=== PATIENT | female | born 1975 | race Caucasian/White ===

== ENCOUNTER → 2017-01-05 | Day surgery (SDC) | payer OTHER ==
[2016-12-29 11:56] VITALS: BMI 22.0
[~2017-01-05] VITALS: Ht 170.2 cm; Wt 63.6 kg
[~2017-01-05] MED LIST: FOLI1TAB7 PO; LIDOCAINE HCL 2% 2 ML VIAL (20MG/ML) ONE; MAGN400T6 PO; MISCCAP80 PO; NICO14DI31 TD; PANT40TA PO; POLY150C4 PO; PROPOFOL IV EMULSION 10 MG/ML 20 ML VIAL IV ONE; RMCI IV
[2017-01-05 12:41] VITALS: Ht 170.2 cm; Wt 63.6 kg
--- NOTE | 2017-01-05 12:53 | Endo History and Physical ---
History & Physical Date of Service: Jan 05, 2017. Chief Complaint: chrons disease Referring Physician: DR LINCOLN History of Present Illness 41 yo CF who presents for colonoscopy secondary to Crohn's Disease. Past Surgical History Hx Cardiac Surgery: No Hx Internal Defibrillator: No Hx Pacemaker: No Hx Abdominal Surgery: Yes (BOWEL RESECTION,REMOVAL ABSCESS ABD/RESECTION) Hx of Implantable Prosthesis: No Hx Post-Op Nausea and Vomiting: No Hx Cancer Surgery: No Hx Thoracic Surgery: No Hx Orthopedic: No Hx Urinary Tract Surgery: No Family History None Social History Smoking Status: Current Every Day Smoker Hx Substance Use: No Hx Alcohol Use: No Allergies Coded Allergies: No Known Allergies (Unverified , 01/05/17) Current Medications Reported Home Medications Medications Dose Route/Sig Max Daily Dose Days Date Category Dose Instructions Nicoderm Cq 14MG Patch (Nicotine) 14 Mg/24 Hr Dis 1 Patch TD DAILY 01/05/17 Reported Remicade (Infliximab) 100 Mg/10 Ml Inj 1 Dose IV [id number] 12/29/16 Reported LAST DOSE HELD 3 WEEKS AGO BEFORE THIS PROCEDURE PER PT Probiotic (Probiotic Product) 1 Cap Cap 1 Tab PO QAM 12/29/16 Reported Protonix (Pantoprazole Sodium) 40 Mg Tab 40 Mg PO BID 12/29/16 Reported Mag-Ox (Magnesium Oxide) 400 Mg Tab 400 Mg PO QAM 12/29/16 Reported Folvite (Folic Acid) 1 Mg Tab 1 Mg PO QAM 12/29/16 Reported Ferrex 150 (Polysaccharide Iron Complex) 150 Mg Cap 150 Mg PO UD 12/29/16 Reported 300 MG AM 150 MG PM Vital Signs Weight (Kilograms): 63.64 Height (Feet): 5 Height (Inches): 7 Physical Exam General Appearance: WD/WN, no apparent distress Respiratory/Chest: Auscultation: breath sounds normal Cardiovascular: Heart Auscultation: RRR Abdomen: Bowel Sounds: normal Inspection & Palpation: soft, non-distended, no tenderness, guarding & rebound Assessment and Plan Assessment: 41 yo CF who presents for colonoscopy secondary to Crohn's Disease. Plan: Proceed with colonoscopy.
--- NOTE | 2017-01-05 14:16 | GI REPORT ---
Procedure Date: 01/05/2017 1:42 PM Procedure: Colonoscopy Indications: Disease activity assessment of Crohn's disease of the small bowel and colon Medicines: Monitored Anesthesia Care Complications: No immediate complications. Estimated Blood Loss: Estimated blood loss: none. Procedure: Pre-Anesthesia Assessment: - Prior to the procedure, a History and Physical was performed, and patient medications and allergies were reviewed. The patient's tolerance of previous anesthesia was also reviewed. The risks and benefits of the procedure and the sedation options and risks were discussed with the patient. All questions were answered, and informed consent was obtained. Prior Anticoagulants: The patient has taken no previous anticoagulant or antiplatelet agents. ASA Grade Assessment: II - A patient with mild systemic disease. After reviewing the risks and benefits, the patient was deemed in satisfactory condition to undergo the procedure. After I obtained informed consent, the scope was passed under direct vision. Throughout the procedure, the patient's blood pressure, pulse, and oxygen saturations were monitored continuously. The On-site loaner was introduced through the anus and advanced to the ileocolonic anastomosis. The colonoscopy was performed without difficulty. The patient tolerated the procedure well. The quality of the bowel preparation was good. The terminal ileum, ileocecal valve, appendiceal orifice, and rectum were photographed. Findings: The edward-terminal ileum contained multiple three mm ulcers. No bleeding was present. Biopsies were taken with a cold forceps for histology. Inflammation characterized by erythema, loss of vascularity and aphthous ulcerations was found in medium patches surrounded by normal mucosa 10 cm apart, as medium-sized patches surrounded by normal mucosa in the transverse colon and as medium-sized patches surrounded by normal mucosa in the ascending colon. This was moderate in severity. Biopsies were taken with a cold forceps for histology. The perianal exam findings include perianal fistula. Impression: - Multiple ulcers in the edward-terminal ileum. Biopsied. - Inflammation was found in the colon 10 cm apart, in the transverse colon and in the ascending colon secondary to Crohn's disease, with ileitis and colitis. Biopsied. 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 Recommendation: - Resume previous diet. - Continue present medications. - Repeat colonoscopy for surveillance based on pathology results. - Return to primary care physician as previously scheduled. - Recommend Colorectal surgery consult secondary to perianal fistulas Chapito Boggs, 01/05/2017 2:16:16 PM This report has been signed electronically. Note Initiated On: 01/05/2017 1:42 PM I attest to the content of the Intraoperative Record and orders documented therein, exceptions below
--- NOTE | 2017-01-05 14:20 | Discharge Instructions ---
Endoscopy Patient Instructions Date / Procedure(s) Performed Jan 05, 2017. Colonoscopy Allergy Information Coded Allergies: No Known Allergies (Unverified , 01/05/17) Discharge Date / Findings Jan 05, 2017. Crohn's Ileocolitis Perianal fistulas Medication Instructions OK to resume all medications today as prescribed Reported Home Medications Medications Dose Route/Sig Max Daily Dose Days Date Category Dose Instructions Nicoderm Cq 14MG Patch (Nicotine) 14 Mg/24 Hr Dis 1 Patch TD DAILY 01/05/17 Reported Remicade (Infliximab) 100 Mg/10 Ml Inj 1 Dose IV [id number] 12/29/16 Reported LAST DOSE HELD 3 WEEKS AGO BEFORE THIS PROCEDURE PER PT Probiotic (Probiotic Product) 1 Cap Cap 1 Tab PO QAM 12/29/16 Reported Protonix (Pantoprazole Sodium) 40 Mg Tab 40 Mg PO BID 12/29/16 Reported Mag-Ox (Magnesium Oxide) 400 Mg Tab 400 Mg PO QAM 12/29/16 Reported Folvite (Folic Acid) 1 Mg Tab 1 Mg PO QAM 12/29/16 Reported Ferrex 150 (Polysaccharide Iron Complex) 150 Mg Cap 150 Mg PO UD 12/29/16 Reported 300 MG AM 150 MG PM Provider Instructions Activity Restrictions - No exercising or heavy lifting for 24 hours. - Do not drink alcohol the day of the procedure. - Do not drive a car or operate machinery until the day after the procedure. - Do not make any important decisions or sign important papers in 24 hours after the procedure. Following Day: - Return to full activity which may include returning to work/school. Diet Start your diet with liquids and light foods (jello, soup, juice, toast). Then eat your usual diet if not nauseated. Treatment For Common After Affects For mild abdominal pain, bloating, or excessive gas: - Rest - Eat lightly - Lie on right side Follow-Up Information Follow-up with DR LINCOLN as scheduled Anesthesia Information What You Should Know You have had a procedure that required some medicine to reduce anxiety and discomfort. This treatment is called moderate sedation. After receiving the treatment, you may be sleepy, but you will be able to breathe on your own. The effects of the treatment may last for several hours. Follow these instructions along with Activity/Diet recommendations noted above: * Do NOT do anything where dizziness or clumsiness would be dangerous. * Rest quietly at home today, then you can be up and about tomorrow. * Have a responsible person stay with you the rest of today. * You may have had an I.V. today. If so, you may take the dressing off later today. Recommendations Call your doctor if: * Trouble breathing * Continuous vomiting for more than 24 hours * Temperature above 101 degrees * Severe abdominal pain or bloating * Pain not relieved by pain medicine ordered * There is increased drainage or redness from any incision * A large amount of rectal bleeding greater than 2-3 tablespoons. (If you had a polyp/s removed or have hemorrhoids, a small amount of blood - from the rectum is to be expected.) * You have any unanswered questions or concerns. IN THE EVENT OF A SERIOUS EMERGENCY, GO TO THE NEAREST EMERGENCY ROOM Your discharge instructions were prepared by provider Chapito Boggs. Patient Instructions Signature Page Kalyani Montalvo Patient (or Guardian) Signature/Date: I have read and understand the instructions given to me by my caregivers. Caregiver/RN/Doctor Signature/Date: The above-named patient and/or guardian has received patient instructions on this date. + Original Patient Signature Page (only) stays with chart. Please make copy for patient.
--- NOTE | 2017-01-05 14:28 | Anesthesiology Progress Note ---
Anesthesia Post Op Note Date & Time Jan 05, 2017 at 14:28 Vital Signs Pain Intensity: 0 Vital Signs Past 12 Hours Date Time Temp Pulse Resp B/P (MAP) Pulse Ox O2 Delivery O2 Flow Rate FiO2 01/05/17 14:15 67 18 84/52 (63) 98 Room Air 01/05/17 12:52 36.5 63 18 86/57 (67) 97 Room Air Notes Mental Status: alert / awake / arousable, participated in evaluation Pt Amnestic to Procedure: Yes Nausea / Vomiting: adequately controlled Pain: adequately controlled Airway Patency, RR, SpO2: stable & adequate BP & HR: stable & adequate Hydration State: stable & adequate Anesthetic Complications: no major complications apparent
[2017-01-05 14:45] VITALS: BP 93/63; PULSE 64; O2SAT 100
== END | disposition home or self-care (01) ==
LOC: C.GI 11:12
PROVIDERS: ATTEND Internal Medicine
DX: K50.90 Crohn's disease, unspecified, without complications (principal); K63.3 Ulcer of intestine; K52.9 Noninfective gastroenteritis and colitis, unspecified; K60.3 Anal fistula; F17.200 Nicotine dependence, unspecified, uncomplicated; Z68.22 Body mass index [BMI] 22.0-22.9, adult

== ENCOUNTER → 2017-07-26 | Outpatient (CLI) | payer OTHER ==
[~2017-07-26] MED LIST changes: +BUDE0.09 PO; +CLIN300C2 PO; -FOLI1TAB7 PO; +FOLI1TAB8 PO; +GADAVIST IV PRN; +GLUCAGON FOR INJ 1 MG VIAL ONE; -LIDOCAINE HCL 2% 2 ML VIAL (20MG/ML) ONE; -MISCCAP80 PO; -NICO14DI31 TD; +NURSING VERBAL MED ORDER ONE; -PROPOFOL IV EMULSION 10 MG/ML 20 ML VIAL IV ONE; -RMCI IV; +VEDO1INJ
--- NOTE | 2017-07-26 14:12 | DIAGNOSTIC IMAGING REPORT ---
ADDENDUM Reformatted images of the perianal region demonstrate T2 hypointense bandlike regions emanating from the posterior wall of the rectum (image 186 and 178), possibly old fistula. These course towards the sacrococcygeal region. No fluid at their termini. 2 tiny foci of fluid noted along the posterior wall of the lower rectum immediately superior to the inner rectal junction (image 176 and 161). These measure 5 mm or less. At least 2 fistulae are noted exiting along the left aspect of the gluteal cleft coursing from the 6:00 region of the anus near the anal verge. These are likely transsphincteric. At least one if not a 14 tract emanates from the anterior anus near the level of the anorectal junction (image 165) and this courses anteriorly (image 153) towards the left posterior lateral labia. Electronically signed by: Alec Alvarado M.D. 07/26/2017 2:50 PM Dictated Date/Time: 07/26/2017 2:45 PM ORIGINAL REPORT ENTEROGRAPHY ABD/PELVIS COMBO CLINICAL HISTORY: 42 years-old Female presenting with CROHN'S DISEASE, history of anal fistulas and diarrhea, history of 2 bowel resections in 2000 and 2015. TECHNIQUE: Multisequence, multiplanar MR imaging of the abdomen and pelvis was performed before and after the administration of intravenous contrast. IV contrast: 6 mL of Gadavist. COMPARISON: None. FINDINGS: Localizer images: Unremarkable. Lung bases: Lung bases clear. Normal heart size. No pericardial or pleural effusion. Liver: Normal morphology. No liver lesion. Patent hepatic vasculature. Biliary: No intrahepatic or extrahepatic biliary ductal dilatation. Normal gallbladder. Pancreas: Normal. Spleen: Normal. Adrenal glands: Normal. Kidneys and ureters: Normal. No hydronephrosis. Bladder: Normal. Pelvic organs: Normal. Bowel: The colon is mildly distended with stool and contrast. No pericolonic fat infiltration. The ascending colon appears shortened, possibly implying prior CT abdomen. The terminal ileum or neoterminal ileum is mildly thick-walled, with wall thickness of 5 mm. This wall thickening extends along a length of over 15-20 cm. The lumen remains patent in this region. There is mild perienteric fat infiltration along this segment. Prominence of the vasa recta. This demonstrates hyperenhancement. No bowel obstruction. Overall the length of small bowel may be shortened, which could correspond with the clinical history of prior bowel resection. Perineum: Multiple setons in place in the anus. Several fistulae noted arising at 1:00 (series 21 image 86), 10:00 (series 21 image 82), and 6:00 (series 21 image 83). These are incompletely evaluated. No perirectal abscess. Peritoneal cavity: No evidence of abscess or inflammatory mass. No convincing evidence of fistula between small bowel loops or into the mesentery. Lymph nodes: Prominent mesenteric lymph nodes. Vasculature: Aorta and IVC patent and normal in caliber. Abdominal wall: Postsurgical changes of the midline ventral abdominal wall. No associated fluid collection or hernia. Musculoskeletal: Normal. IMPRESSION: 1. Post surgical changes of colectomy with neoterminal ileum suspected in the right mid abdomen. Evidence of active inflammation of the neoterminal ileum along a length of 15 to 20 cm. A component of chronic fibrostenosing disease may be present though no bowel obstruction is apparent. No evidence of penetrating disease in the abdomen. Reactive mesenteric lymphadenopathy. 2. Fistulous disease in the perianal region is incompletely evaluated. No perirectal abscess. Setons in place. Consider dedicated contrast-enhanced MR of the anus for better evaluation. Electronically signed by: Alec Alvarado M.D. 07/26/2017 2:11 PM Dictated Date/Time: 07/26/2017 1:32 PM
== END | disposition home or self-care (01) ==
LOC: C.MRI 10:49
PROVIDERS: ATTEND Colon & Rectal Surgery
DX: K50.90 Crohn's disease, unspecified, without complications (principal)

== ENCOUNTER → 2017-08-02 | Day surgery (SDC) | payer OTHER ==
[2017-07-25 09:10] VITALS: Ht 170.2 cm; Wt 63.6 kg
[~2017-08-02] VITALS: Ht 170.2 cm; Wt 63.6 kg
[~2017-08-02] MED LIST changes: -GADAVIST IV PRN; -GLUCAGON FOR INJ 1 MG VIAL ONE; +LIDOCAINE HCL 2% 2 ML VIAL (20MG/ML) ONE; -NURSING VERBAL MED ORDER ONE; +PROPOFOL IV EMULSION 10 MG/ML 20 ML VIAL IV ONE; +SODIUM CHLORIDE 0.9% 500ML 500 ML IV ONE
[2017-08-02 10:44] VITALS: TEMP 36.9
--- NOTE | 2017-08-02 11:39 | Endo History and Physical ---
History & Physical Date of Service: Aug 02, 2017. Chief Complaint: Crohn's disease,fistula Referring Physician: with copy to Dr. Michael Soto History of Present Illness 42 yo CF who presents for colonoscopy secondary to Fistulizing Crohn's Disease. Past Surgical History Hx Cardiac Surgery: No Hx Internal Defibrillator: No Hx Pacemaker: No Hx Abdominal Surgery: Yes (BOWEL RESECTION 2000, ABSCESS/INTESTINE REMOVAL 2015 , APPENDECTOMY, TUBAL) Hx of Implantable Prosthesis: No Hx Post-Op Nausea and Vomiting: No Hx Cancer Surgery: No Hx Thoracic Surgery: No Hx Orthopedic: No Hx Urinary Tract Surgery: No Family History None Social History Smoking Status: Former Smoker Hx Substance Use: No Hx Alcohol Use: Yes (ONCE A MONTH) Allergies Coded Allergies: No Known Allergies (Verified , 08/02/17) Current Medications Reported Home Medications Medications Dose Route/Sig Max Daily Dose Days Date Category Dose Instructions Cleocin (Clindamycin Hcl) 300 Mg Cap 1 Cap PO TID 7 07/25/17 Reported Entyvio (Vedolizumab) 300 Mg Inj 1 Q8WK 07/25/17 Reported Budesonide 3 Mg Cap 1 Tab PO TID 07/25/17 Reported Protonix (Pantoprazole Sodium) 40 Mg Tab 40 Mg PO QAM 12/29/16 Reported Mag-Ox (Magnesium Oxide) 400 Mg Tab 400 Mg PO QAM 12/29/16 Reported Folvite (Folic Acid) 1 Mg Tab 1 Mg PO QAM 12/29/16 Reported Ferrex 150 (Polysaccharide Iron Complex) 150 Mg Cap 150 Mg PO UD 12/29/16 Reported 300 MG AM 150 MG PM Vital Signs Weight (Kilograms): 63.64 Height (Feet): 5 Height (Inches): 7 Date Time Temp Pulse Resp B/P (MAP) Pulse Ox O2 Delivery O2 Flow Rate FiO2 08/02/17 10:44 36.9 92 18 111/68 (82) 98 Room Air Physical Exam General Appearance: WD/WN, no apparent distress Respiratory/Chest: Auscultation: breath sounds normal Cardiovascular: Heart Auscultation: RRR Abdomen: Bowel Sounds: normal Inspection & Palpation: soft, non-distended, no tenderness, guarding & rebound Assessment and Plan Assessment: 42 yo CF who presents for colonoscopy secondary to Fistulizing Crohn's Disease. Plan: Proceed with colonoscopy.
--- NOTE | 2017-08-02 12:18 | GI REPORT ---
Patient Name: Kalyani Montalvo Procedure Date: 08/02/2017 11:40 AM Date of : 1975 Admit Type: Outpatient Age: 42 Gender: Female Attending MD: Chapito Boggs DO Procedure: Colonoscopy Providers: Chapito Boggs DO Referring MD: Tod Bryan Indications: Disease activity assessment of Crohn's disease of the small bowel and colon Medicines: Monitored Anesthesia Care Complications: No immediate complications. Estimated Blood Loss: Estimated blood loss: none. Procedure: Pre-Anesthesia Assessment: - Prior to the procedure, a History and Physical was performed, and patient medications and allergies were reviewed. The patient's tolerance of previous anesthesia was also reviewed. The risks and benefits of the procedure and the sedation options and risks were discussed with the patient. All questions were answered, and informed consent was obtained. Prior Anticoagulants: The patient has taken no previous anticoagulant or antiplatelet agents. ASA Grade Assessment: II - A patient with mild systemic disease. After reviewing the risks and benefits, the patient was deemed in satisfactory condition to undergo the procedure. After I obtained informed consent, the scope was passed under direct vision. Throughout the procedure, the patient's blood pressure, pulse, and oxygen saturations were monitored continuously. The scope was introduced through the anus and advanced to the ileocolonic anastomosis. The colonoscopy was performed without difficulty. The patient tolerated the procedure well. The quality of the bowel preparation was good. The terminal ileum and the rectum were photographed. Findings: The perianal exam findings includes multiple perianal fistulas with setons. The ileum, 5 cm from the ileocecal anastomosis contained multiple five mm ulcers. No bleeding was present. Biopsies were taken with a cold forceps for histology. There was evidence of a prior end-to-side ileo-colonic anastomosis in the ascending colon. This was patent and was characterized by erythema and ulceration. The anastomosis was traversed. Inflammation characterized by erythema, loss of vascularity and aphthous ulcerations was found as medium patches surrounded by normal mucosa 10 cm apart. This was mild in severity. Biopsies were taken with a cold forceps for histology. Impression: - Perianal fistula found on perianal exam. - Multiple ulcers ileum, 5 cm from the ileocecal anastomosis. Biopsied. - Patent end-to-side ileo-colonic anastomosis, characterized by erythema and ulceration. - Crohn's disease, with ileitis and colitis. Inflammation was found in the colon 10 cm apart. This was mild in severity. Biopsied. Recommendation: - Resume previous diet. - Continue present medications. - Repeat colonoscopy for surveillance based on pathology results. - Return to primary care physician as previously scheduled. - Return to referring physician as previously scheduled. Chapito Boggs, DO 08/02/2017 12:18:21 PM This report has been signed electronically. Note Initiated On: 08/02/2017 11:40 AM Number of Addenda: 0 I attest to the content of the Intraoperative Record and orders documented therein, exceptions below {[id number]}
--- NOTE | 2017-08-02 12:20 | Discharge Instructions ---
Endoscopy Patient Instructions Date / Procedure(s) Performed Aug 02, 2017. Colonoscopy Allergy Information Coded Allergies: No Known Allergies (Verified , 08/02/17) Discharge Date / Findings Aug 02, 2017. Perianal fistulas Crohn's Ileocolitis s/p biopsies of ileum and colon Medication Instructions OK to resume all medications today as prescribed Reported Home Medications Medications Dose Route/Sig Max Daily Dose Days Date Category Dose Instructions Cleocin (Clindamycin Hcl) 300 Mg Cap 1 Cap PO TID 7 07/25/17 Reported Entyvio (Vedolizumab) 300 Mg Inj 1 Q8WK 07/25/17 Reported Budesonide 3 Mg Cap 1 Tab PO TID 07/25/17 Reported Protonix (Pantoprazole Sodium) 40 Mg Tab 40 Mg PO QAM 12/29/16 Reported Mag-Ox (Magnesium Oxide) 400 Mg Tab 400 Mg PO QAM 12/29/16 Reported Folvite (Folic Acid) 1 Mg Tab 1 Mg PO QAM 12/29/16 Reported Ferrex 150 (Polysaccharide Iron Complex) 150 Mg Cap 150 Mg PO UD 12/29/16 Reported 300 MG AM 150 MG PM Provider Instructions Activity Restrictions - No exercising or heavy lifting for 24 hours. - Do not drink alcohol the day of the procedure. - Do not drive a car or operate machinery until the day after the procedure. - Do not make any important decisions or sign important papers in 24 hours after the procedure. Following Day: - Return to full activity which may include returning to work/school. Diet Start your diet with liquids and light foods (jello, soup, juice, toast). Then eat your usual diet if not nauseated. Treatment For Common After Affects For mild abdominal pain, bloating, or excessive gas: - Rest - Eat lightly - Lie on right side Follow-Up Information Follow-up with with copy to Dr. Michael Soto as scheduled Anesthesia Information What You Should Know You have had a procedure that required some medicine to reduce anxiety and discomfort. This treatment is called moderate sedation. After receiving the treatment, you may be sleepy, but you will be able to breathe on your own. The effects of the treatment may last for several hours. Follow these instructions along with Activity/Diet recommendations noted above: * Do NOT do anything where dizziness or clumsiness would be dangerous. * Rest quietly at home today, then you can be up and about tomorrow. * Have a responsible person stay with you the rest of today. * You may have had an I.V. today. If so, you may take the dressing off later today. Recommendations Call your doctor if: * Trouble breathing * Continuous vomiting for more than 24 hours * Temperature above 101 degrees * Severe abdominal pain or bloating * Pain not relieved by pain medicine ordered * There is increased drainage or redness from any incision * A large amount of rectal bleeding greater than 2-3 tablespoons. (If you had a polyp/s removed or have hemorrhoids, a small amount of blood - from the rectum is to be expected.) * You have any unanswered questions or concerns. IN THE EVENT OF A SERIOUS EMERGENCY, GO TO THE NEAREST EMERGENCY ROOM Your discharge instructions were prepared by provider Chapito Boggs. Patient Instructions Signature Page Kalyani Montalvo Patient (or Guardian) Signature/Date: I have read and understand the instructions given to me by my caregivers. Caregiver/RN/Doctor Signature/Date: The above-named patient and/or guardian has received patient instructions on this date. + Original Patient Signature Page (only) stays with chart. Please make copy for patient.
[2017-08-02 12:50] VITALS: BP 95/68; PULSE 66; O2SAT 99
--- NOTE | 2017-08-02 12:51 | Anesthesiology Progress Note ---
Anesthesia Post Op Note Date & Time Aug 02, 2017 at 12:51 Vital Signs Pain Intensity: 0 Vital Signs Past 12 Hours Date Time Temp Pulse Resp B/P (MAP) Pulse Ox O2 Delivery O2 Flow Rate FiO2 08/02/17 12:37 84 18 99/62 (74) 99 Room Air 08/02/17 12:23 80 18 91/56 (68) 98 Room Air 08/02/17 10:44 36.9 92 18 111/68 (82) 98 Room Air Notes Mental Status: alert / awake / arousable, participated in evaluation Pt Amnestic to Procedure: Yes Nausea / Vomiting: adequately controlled Pain: adequately controlled Airway Patency, RR, SpO2: stable & adequate BP & HR: stable & adequate Hydration State: stable & adequate Anesthetic Complications: no major complications apparent
== END | disposition home or self-care (01) ==
LOC: C.GI 10:24
PROVIDERS: ATTEND Internal Medicine
DX: K50.90 Crohn's disease, unspecified, without complications (principal); D64.9 Anemia, unspecified; K60.3 Anal fistula; K63.3 Ulcer of intestine; Z87.891 Personal history of nicotine dependence; Z79.899 Other long term (current) drug therapy